=== PATIENT | female | born 1990 | race Two or more races ===

== ENCOUNTER 2024-10-28 15:04 | Emergency (ER) | payer OTHER ==
[~2024-10-28] VITALS: Ht 162.6 cm; Wt 61.2 kg
[2024-10-28] MEDS ORDERED: CEFTRIAXONE SODIUM 1,000 MG VIAL IM ONE (16:45)
[2024-10-28 17:24] LABS: URINE APPEARANCE Cloudy; URINE BILIRRUBIN Negative (NEGATIVE); URINE BLOOD Large; URINE COLOR Yellow; URINE GLUCOSE Negative (NEGATIVE); URINE KETONE Negative (NEGATIVE); URINE LEUKOCYTE Large; URINE NITRATE Negative; URINE PROTEIN 30 (NEGATIVE); URINE UROBILINOGEN 0.2 E.U./dl
[2024-10-28 17:27] LABS: URINE BACTERIA 1742.2 uL (0.0-1933); URINE CAST 1.61 uL (0.0-1.40); URINE EPITHELIAL CELLS 6.6 uL (0.0-38.8); URINE RBC 33.8 uL (0.0-20.8); URINE WBC 2408.9 uL (0.0-23.2)
[2024-10-28] MEDS ORDERED: CEPHALEXIN500 MG PO (17:51)
== END 2024-10-28 18:19 | disposition home or self-care (01) ==
LOC: ER 15:32
PROVIDERS: General Practice
DX: N39.0 Urinary tract infection, site not specified (principal)